=== PATIENT | female | born 1950 | race Caucasian/White ===

== ENCOUNTER 2020-01-21 12:47 | Inpatient (IN) | payer OTHER ==
[~2020-01-21] VITALS: Ht 172.7 cm; Wt 95.7 kg
--- NOTE | ~2020-01-21 | EMS ---
[facility] [address] [place] [address] EMS Patient Care Report Name: ENIO PACHECO OZ Room #: REG [facility] [place]#: [id number] Admission: 01/21/20 Attend Phys: Discharge: Date of : 48 Report #: [id number] THIS REPORT FOR: //name// Report Transmitted: 01/21/2020 13:46 EMS Care Summary [facility] MED-ACT Incident [phone] @ 01/21/2020 12:02 Incident Location [address] [place] [address] Patient WENDIE PACHECO Female, 69 Years 1950 Patient Address [address] [place] [address] Patient History Hypertension (HTN), Patient Allergies No known allergies, Patient Medications Lisinopril, ASA, Chief Complaint per pt back pain Disposition Transported No Lights/[place] Dispatch Reason Heart Problems/AICD Transported To [facility] Narrative M1141 dispatched non emergent to C3 heart problems. Upon arrival staff report the pt was here for a L4, L5 laminectomy. Staff report during the operation the pt became tachycardic. Staff report post OP the pt was in Afib RVR. Staff [address] [address] EMS Patient Care Report Name: ENIO PACHECO Room #: REG [facility] [place]#: [id number] Admission: 01/21/20 Attend Phys: Discharge: Date of : 48 Report #: [id number] report the pt voiced no complaints and no changes in V/S other than ECG. Staff report they administered metoprolol to the pt. Staff report they placed the pt on oxygen per normal post OP. Staff report they administered 25mcg of fentanyl prior to arrival for pain from surgery. Staff report no cardiac arrhythmia history. Pt states her only complaint is back pain. Pt denies any other complaints. Pt assessment performed. Vitals assessed including 12 lead ecg. Pt moved to cot. Pt moved to ambulance. Biocom to [place] performed. Pt report given to RN. Pt care transferred to [place] without incident. M1141 cleared call. Initial Vitals @PTAP: 92,BP: 135/91, @PTAP: 136, @PTAP: 114,BP: 126/84, @12:30P: 85,R: 16,BP: 155/99,Pain: 0/10,GCS: 15,SpO2: 93,Revised Trauma: 12, @12:32P: 124,SpO2: 96, @12:36P: 135,SpO2: 96,GA Suspected: false @12:39P: 130,BP: 170/115,SpO2: 96, Assessments @12:20MENTAL:Person Oriented,Time Oriented,Place Oriented,Event Oriented,SKIN:HEENT:Eyes: Right Pupil: 3-mm,Eyes: Left Pupil: 3-mm,LUNG SOUNDS:General: No Abnormalities,ABDOMEN:General: No Abnormalities,PELVIS//GI:EXTREMITIES:Left Arm: No Abnormalities,Right Arm: No Abnormalities,Left Leg: No Abnormalities,Right Leg: No Abnormalities,PULSE:Radial: 2+ Normal,NEURO:No Abnormalities, Impression Cardiac arrhythmia/dysrhythmia Procedures @12:36Surgical Mask on PatientResponse: Unchanged@12:3612-Lead ECGResponse: UnchangedSucceeded@PTANormal Saline (.9% NaCl) cc (18 ga) Site: Hand-RightResponse: UnchangedSucceeded Timeline FISHING VESSEL OPERATOR,Normal Saline (.9% NaCl) cc 18 ga Site: Hand-Right,Response: UnchangedSucceeded, FISHING VESSEL OPERATOR,BP: 135/91 M,PULSE: 92,RR: R,SPO2: Ox,ETCO2: ,BG: ,PAIN: ,GCS: , FISHING VESSEL OPERATOR,BP: / M,PULSE: 136,RR: R,SPO2: Ox,ETCO2: ,BG: ,PAIN: ,GCS: , FISHING VESSEL OPERATOR,BP: 126/84 M,PULSE: 114,RR: R,SPO2: Ox,ETCO2: ,BG: ,PAIN: ,GCS: , 11:51,Call Received 11:51,Psap Call 12:02,Dispatched [address] [address] EMS Patient Care Report Name: ENIO PACHECO Room #: REG [facility] [place]#: [id number] Admission: 01/21/20 Attend Phys: Discharge: Date of : 48 Report #: [id number] 12:02,En Route 12:16,On Scene 12:19,At Patient 12:30,BP: 155/99 M,PULSE: 85,RR: 16 R,SPO2: 93 Ox,ETCO2: ,BG: ,PAIN: 0,GCS: 15, 12:32,BP: / M,PULSE: 124,RR: R,SPO2: 96 Ox,ETCO2: ,BG: ,PAIN: ,GCS: , 12:33,Depart Scene 12:36,Surgical Mask on Patient,Response: Unchanged 12:36,12-Lead ECG,Response: UnchangedSucceeded, 12:36,BP: / M,PULSE: 135,RR: R,SPO2: 96 Ox,ETCO2: ,BG: ,PAIN: ,GCS: , 12:39,BP: 170/115 M,PULSE: 130,RR: R,SPO2: 96 Ox,ETCO2: ,BG: ,PAIN: ,GCS: , 12:41,At Destination 13:02,Call Closed Disclaimer v1.1 Copyright 2020 [employer] This EMS Care Summary contains data elements from the applicable legal record (which may be displayed differently). It is designed to provide pertinent information for the following purposes: continuity of care, clinical quality, and state data reporting. The complete legal record is available to ED staff and administrators of the receiving hospital in [employer]'s Patient Tracker. All data is provided "as is."
[2020-01-21 12:49] VITALS: BP 135/78
--- NOTE | 2020-01-21 13:29 | EKG ---
[facility] [place] [address] ELECTROCARDIOGRAM REPORT Name: ENIO PACHECO OZ Room #: PRE [facility]..#: [id number] Admission: Attend Phys: Discharge: Date of : 48 Report #: [id number] THIS REPORT FOR: cc: Ottoniel Tatum MD ~ THIS REPORT FOR: //name// [facility] ED Test Date: 2020-01-21 Test Time: 13:23:29 Pat Name: ENIO PACHECO Department: Room: Gender: F Test Engineering Intern: brent : 1950 Requested By: Ajay Denis Order Number: [id number] MD: Ottoniel Tatum Measurements Intervals [place] Rate: 121 P: PA: QRS: 18 QRSD: 91 T: 54 QT: 343 QTc: 487 Interpretive Statements Atrial fibrillation Borderline prolonged QT interval No previous ECG available for comparison Electronically Signed On 01-21-2020 13:29:31 CDT by Ottoniel Tatum [email or web address] <ELECTRONICALLY SIGNED> By: Ottoniel Tatum MD 01/21/20 1329 1323 1323 Ottoniel Tatum MD /LUISITO
[2020-01-21 13:46] LABS: ABSOLUTE NEUTROPHILS 7.3 thou/uL (1.4-8.2); BASOPHILS 0.3 % (0.0-2.0); EOSINOPHILS 0.4 % (0.0-3.0); HEMATOCRIT 37.1 % (37.0-47.0); HEMOGLOBIN 12.3 gm/dL (12.0-15.0); LYMPHOCYTES 7.8 % (24.0-44.0); MCH 29.3 pg (26.0-34.0); MCHC 33.1 g/dL (28.0-37.0); MCV 88.5 fL (80.0-100.0); MONOCYTES 2.1 % (1.0-8.0); PLATELET COUNT 289 thou/uL (150-400); POLYS 89.4 % (36.0-66.0); RBC 4.19 mil/uL (4.20-5.00); RDW 14.4 % (10.5-14.5); WBC 8.2 thou/uL (4.0-11.0)
[2020-01-21 14:05] LABS: URINE BILIRUBIN NEGATIVE (Negative); URINE BLOOD NEGATIVE (Negative); URINE CLARITY CLEAR; URINE COLOR YELLOW; URINE GLUCOSE-RANDOM* NEGATIVE (Negative); URINE KETONES NEGATIVE (Negative); URINE LEUKOCYTES-REFLEX NEGATIVE (Negative); URINE NITRITE-REFLEX NEGATIVE (Negative); URINE PROTEIN (DIPSTICK) NEGATIVE (Negative); URINE UROBILINOGEN 0.2 E.U./dl (0.2-1.0)
[2020-01-21] MEDS ORDERED: ULTRAM50 MG PO (14:49)
[2020-01-21] MEDS ORDERED: NEURONTIN 300M300 M2 PO (14:49)
[2020-01-21] MEDS ORDERED: ZESTRIL10 MG PO (14:49)
[2020-01-21] MEDS ORDERED: VITAMIN C250 M1 PO (14:50)
[2020-01-21] MEDS ORDERED: GLUCOSAMINE1000 MG PO (14:50)
[2020-01-21] MEDS ORDERED: CALCIUM500 MG PO (14:50)
[2020-01-21] MEDS ORDERED: ZYRTEC10 M5 PO (14:50)
[2020-01-21] MEDS ORDERED: CHILDREN'S ASPI81 M1 PO (14:51)
[2020-01-21] MEDS ORDERED: WOMEN'S 50 PLU1 EACH PO (14:51)
[2020-01-21 15:23] LABS: CREATININE 0.5 mg/dL (0.6-1.0)
--- NOTE | 2020-01-21 15:24 | NUR ---
CALLED DIETARY AND ORDERED SPECIAL DINNER TRAY FOR PT AT THIS TIME SHE IS AN ADMISSION
[2020-01-21 15:35] LABS: CALCIUM 5.5 mg/dL (8.5-10.1)
[2020-01-21 15:36] LABS: POTASSIUM 2.8 mmol/L (3.5-5.1)
[2020-01-21 16:08] LABS: CREATININE 0.8 mg/dL (0.6-1.0)
[2020-01-21 16:10] LABS: CALCIUM 9.5 mg/dL (8.5-10.1); POTASSIUM 4.5 mmol/L (3.5-5.1)
[2020-01-21 16:17] LABS: ALBUMIN 3.5 g/dL (3.4-5.0); TOTAL BILIRUBIN 0.3 mg/dL (0.2-1.0); TOTAL PROTEIN 7.4 g/dL (6.4-8.2)
[2020-01-21 17:11] VITALS: BP 126/66
[2020-01-21 17:32] VITALS: BP 109/73
[2020-01-21 20:00] VITALS: BP 120/62
--- NOTE | 2020-01-21 22:49 | NUR ---
ASSUMED CARE OF PT FROM DAY SHIFT , PT ASSESSMENT AND TIFFANIE BASE COMPLETED, PT DENIES PAIN OR SOA WARDROBE MANAGER SHOWS NSR CARDIZEM GTT AT 10 MG /HR , PT HR NSR 60 CARDIAZEM RATE DECREASED TO 5 MG/HR. PT RESTING QUIETLY , HR DECREASED TO 58 CARDIAZEM GTT THEN TURN OFF, LEMONS SUPERVISOR FELLING BUCKING CALLED AND INFORMED OF PT STATUS. CARDIZEM GTT RE-ORDER AND WILL BE RESTARTED IF AFIB OR INCREASE HEART RATE OCCURR . WILL CONITUE TO MONITOR CLOSELY AND WILL CONITNUE WITH CURRENT POC.
[2020-01-22] VITALS: BP 116/61
[2020-01-22 04:00] VITALS: BP 116/48
[2020-01-22 05:52] LABS: ABSOLUTE NEUTROPHILS 8.2 thou/uL (1.4-8.2); BASOPHILS 0.1 % (0.0-2.0); HEMATOCRIT 34.2 % (37.0-47.0); HEMOGLOBIN 11.2 gm/dL (12.0-15.0); LYMPHOCYTES 7.4 % (24.0-44.0); MCH 29.2 pg (26.0-34.0); MCHC 32.8 g/dL (28.0-37.0); MONOCYTES 5.4 % (1.0-8.0); PLATELET COUNT 285 thou/uL (150-400); POLYS 87.1 % (36.0-66.0); RBC 3.84 mil/uL (4.20-5.00); RDW 14.7 % (10.5-14.5); WBC 9.4 thou/uL (4.0-11.0)
[2020-01-22 06:03] LABS: CREATININE 0.8 mg/dL (0.6-1.0); MAGNESIUM 1.7 mg/dL (1.8-2.4); POTASSIUM 4.2 mmol/L (3.5-5.1)
--- NOTE | 2020-01-22 08:11 | NUR ---
ASSUMED CARE OF PT AT SHIFT CHANGE, A&0X4, HAS BEEN UP AD RAFAEL STEADY, PT FOUND OUT FROM HER CARDIOLOGY OPERATIONS LOGISTICS ANALYST THAT SHE SHOULD HAVE BEEN ROLLING YESTERDAY AND WALKING TODAY. ADDED SPOUSE IN TO AXEL VISITOR INTERENTION AND HELL BRING HER POST OP DIRECTIONS. BACK PAIN 09/19, IVF RUNNING. SEE SEPARATE INTERVENTIONS FOR ASSESSMENTS. MAG LOW, WILL ADM IVMAG WHEN ABLE. ENCOURAGED PT TO USE CALL LIGHT FOR ANY NEEDS
[2020-01-22] MEDS ORDERED: METOPROLOL SUCC50 MG PO (08:42)
[2020-01-22 08:49] VITALS: BP 115/57
--- NOTE | 2020-01-22 10:10 | 2DMMODE ---
[facility] [place] [address] 2 D/M-MODE ECHOCARDIOGRAM Name: ENIO PACHECO Room #: 204-P ADM IN M.R.#: [id number] Admission: 01/21/20 Attend Phys: Ellis Bojorquez MD Discharge: Date of : 48 Report #: [id number] THIS REPORT FOR: cc: Adarsh Valenzuela MD, Travis J. MD Park, Jin S. MD ~ APPROVED REPORT Study performed: 01/22/2020 09:10:12 EXAM: Comprehensive 2D, Doppler, and color-flow Echocardiogram Patient Location: Bedside Room #: 204 Status: routine BSA: 2.07 HR: 70 bpm BP: 116/48 mmHg Rhythm: NSR Other Information Study Quality: Good Indications Atrial Fibrillation Hypertension/HDD 2D Dimensions RVDd: 28.72 mm IVSd: 10.19 (7-11mm) LVOT Diam: 18.30 (18-24mm) LVDd: 40.68 mm PWd: 10.29 (7-11mm) Ascending Ao: 31.25 (22-36mm) LVDs: 26.73 (25-40mm) Aortic Root: 29.34 mm IVC: 10.00 mm Volumes Left Atrial Volume (Systole) Single Plane 4CH: 51.00 mL Single Plane 2CH: 45.84 mL LA ESV Index: 25.00 mL/m2 Aortic Valve AoV Peak John.: 1.54 m/s AO Peak Gr.: 9.48 mmHg LVOT Max P.72 mmHg LVOT Max V: 1.48 m/s MIKAYLA Vmax: 2.52 cm2 [facility] [address] [address] 2 D/M-MODE ECHOCARDIOGRAM Name: TARAENIO Room #: 204-P [facility] IN .R.#: [id number] Admission: 01/21/20 Attend Phys: Ellis Bojorquez MD Discharge: Date of : 48 Report #: [id number] Mitral Valve E/A Ratio: 1.2 MV Decel. Time: 170.47 ms MV E Max John.: 0.88 m/s MV A John.: 0.76 m/s MV PHT: 49.44 ms IVRT: 78.43 ms Pulmonary Valve PV Peak John.: 1.10 m/s PV Peak Gr.: 4.88 mmHg Pulmonary Vein P Vein S: 0.62 m/s P Vein A: 0.27 m/s P Vein D: 0.33 m/s P Vein A Dur.: 101.5 msec P Vein S/D Ratio: 1.88 Tricuspid Valve TR Peak John.: 2.33 m/s TR Peak Gr.: 21.68 mmHg PA Pressure: 27.00 mmHg Left Ventricle The left ventricle is normal size. There is normal LV segmental wall motion. There is normal left ventricular wall thickness. Left ventricular systolic function is normal. The left ventricular ejection fraction is within the normal range. LVEF is 55-60%. Right Ventricle The right ventricle is normal size. The right ventricular systolic function is normal. Atria The left atrium size is normal. The right atrium size is normal. Aortic Valve The aortic valve is normal in structure. No aortic regurgitation is present. There is no aortic valvular stenosis. Mitral Valve The mitral valve is normal in structure. There is no mitral valve regurgitation noted. No evidence of mitral valve stenosis. Tricuspid Valve The tricuspid valve is normal in structure. There is mild tricuspid [facility] [address] [place] [address] 2 D/M-MODE ECHOCARDIOGRAM Name: ENIO PACHECO Room #: 204-P [facility] IN M.R.#: [id number] Admission: 01/21/20 Attend Phys: Ellis Bojorquez MD Discharge: Date of : 48 Report #: [id number] regurgitation. Estimated PAP 25 mmHg. Pulmonic Valve The pulmonary valve is normal in structure. There is no pulmonic valvular regurgitation. Great Vessels The aortic root is normal in size. IVC is normal in size and collapses >50% with inspiration. Pericardium There is no pericardial effusion. <Conclusion> The left ventricle is normal size. There is normal left ventricular wall thickness. Left ventricular systolic function is normal. The right ventricle is normal size. The left atrium size is normal. The aortic valve is normal in structure. There is no mitral valve regurgitation noted. There is mild tricuspid regurgitation. Estimated PAP 25 mmHg. <ELECTRONICALLY SIGNED> By: Delmar Hopkins MD 01/22/20 1010 1010 1010 Delmar Hopkins MD /INF
[2020-01-22 12:00] VITALS: BP 126/59
[2020-01-22 12:37] VITALS: BP 115/57
== END 2020-01-22 14:38 | disposition home or self-care (01) | DRG 309 ==
LOC: ER 12:47 → 2N 17:54
PROVIDERS: Nurse Practitioner; ADMIT Internal Medicine; ATTEND Internal Medicine
DX: I48.0 Paroxysmal atrial fibrillation (principal); I97.191 Other postprocedural cardiac functional disturbances following other surgery; I10 Essential (primary) hypertension; G62.9 Polyneuropathy, unspecified; M19.90 Unspecified osteoarthritis, unspecified site; K59.00 Constipation, unspecified; G47.00 Insomnia, unspecified; Z98.890 Other specified postprocedural states; Z82.49 Family history of ischemic heart disease and other diseases of the circulatory system; Z79.899 Other long term (current) drug therapy
CPT/HCPCS: 10081

== ENCOUNTER → 2020-02-18 | Outpatient (CLI) | payer OTHER ==
[~2020-02-18] MED LIST: CALCIUM500 MG PO; CHILDREN'S ASPI81 M1 PO; GLUCOSAMINE1000 MG PO; METOPROLOL SUCC50 MG PO; NEURONTIN 300M300 M2 PO; ULTRAM50 MG PO; VITAMIN C250 M1 PO; WOMEN'S 50 PLU1 EACH PO; ZESTRIL10 MG PO; ZYRTEC10 M5 PO
== END ==
LOC: SJCVC 16:40
PROVIDERS: ATTEND Internal Medicine Cardiovascular Disease
DX: I48.0 Paroxysmal atrial fibrillation (principal); I47.1 Supraventricular tachycardia; I10 Essential (primary) hypertension; Z79.899 Other long term (current) drug therapy